=== PATIENT | male | born 1940 | race Caucasian/White ===

== ENCOUNTER 2018-01-08 07:44 | Emergency (ER) | payer OTHER ==
[~2018-01-08] VITALS: Ht 177.8 cm; Wt 108.4 kg
[~2018-01-08 07:44] MED LIST: ASPIRIN EC81 M1 PO; ATORVASTATIN CA40 M1 PO; BUPROPION HCL150 MG PO; CARVEDILOL6.25 M1 PO; CLEOCIN HCL150 MG PO; COMINH INH; COZ25 PO; DEPAKOTE ER250 M1; DIVALPROEX SOD250 MG PO; FENOFIBRATE145 M1 PO; FUROSEMIDE20 MG PO; LAC PO; LEVAQUIN750 MG PO; LEVOCETIRIZINE D5 M1 PO; LORATADINE10 MG PO; METOPROLOL SUCC50 M1 PO; PRADAXA150 M1 PO; PRILOSEC20 MG PO; SINEMET 25-1001 TAB PO
[2018-01-08 07:51] VITALS: Ht 177.8 cm; Wt 108.4 kg
[2018-01-08 09:52] VITALS: BP 160/72
== END 2018-01-08 09:52 | disposition home or self-care (01) ==
LOC: ED 07:44
DX: S63.502A Unspecified sprain of left wrist, initial encounter (principal); S09.90XA Unspecified injury of head, initial encounter; G20 Parkinson's disease; Z88.0 Allergy status to penicillin; Z86.79 Personal history of other diseases of the circulatory system; W19.XXXA Unspecified fall, initial encounter; Y93.89 Activity, other specified; Y92.89 Other specified places as the place of occurrence of the external cause; Y99.8 Other external cause status

== ENCOUNTER 2018-12-04 16:57 | Inpatient (IN) | payer OTHER ==
[~2018-12-04] VITALS: Ht 177.8 cm; Wt 95.3 kg
[~2018-12-04 16:57] MED LIST changes: +ALFUZOSIN HYDRO10 M1 PO; +ASPIR LOW81 MG PO; +BUPROPION HCL150 M1 PO; +CLARITIN10 MG PO; +COLACE100 MG PO; +DIVALPROEX SOD500 M2 PO; +FLOVENT DI50 MCG/Ac1 IH; +GOOD SENSE OMEP20 MG PO; +LASIX20 MG PO; +LEADER MELATONIN5 MG PO; +LIPI10 PO; +POTASSIUM CHLO10 MEQ PO; +PROSCAR5 MG PO; +ULTRAM50 MG PO; +VITAMIN B121000 MCG PO
[2018-12-04 17:05] VITALS: Ht 177.8 cm; Wt 95.3 kg
[2018-12-04 18:08] LABS: PLATELET COUNT 181 x10^3mcL (130-400)
[2018-12-04 18:09] LABS: RED CELL DISTRIBUTION WIDTH 16.6 % (11.5-14.5)
[2018-12-04 18:16] LABS: CALCIUM 8.2 mg/dL (8.5-10.1); CARBON DIOXIDE 34.5 mmol/L (21-32); CHLORIDE SERUM 103 mmol/L (98-107); CREATININE SERUM 1.1 mg/dL (0.7-1.3); GLUCOSE SERUM 108 mg/dL (74-106); POTASSIUM SERUM 4.1 mmol/L (3.5-5.1); SODIUM SERUM 141 mmol/L (136-145)
[2018-12-04 18:21] LABS: ALKALINE PHOSPHATASE 68 U/L (46-116); ALT/SGPT 7 U/L (16-63); AST/SGOT 16 U/L (15-37); BILIRUBIN TOTAL 0.5 mg/dL (0.20-1.00)
[2018-12-04] MEDS ORDERED: FUROSEMIDE20 MG PO (18:33)
[2018-12-04] MEDS ORDERED: CLARITIN10 MG PO (18:34)
[2018-12-04] MEDS ORDERED: GOOD SENSE OMEP20 MG PO (18:34)
[2018-12-04] MEDS ORDERED: RESTORIL15 MG PO (18:35)
[2018-12-04] MEDS ORDERED: PRADAXA150 M1 PO (18:35)
[2018-12-04] MEDS ORDERED: KLOR-CON SPRIN10 MEQ PO (18:35)
[2018-12-04] MEDS ORDERED: TRAMADOL HCL50 MG PO (18:36)
[2018-12-04] MEDS ORDERED: ALFUZOSIN HYDRO10 M1 PO (18:36)
[2018-12-04] MEDS ORDERED: ASPIRIN ADULT L81 M3 PO (18:36)
[2018-12-04] MEDS ORDERED: LIPI10 PO (18:37)
[2018-12-04] MEDS ORDERED: BUPROPION HCL150 MG PO (18:37)
[2018-12-04] MEDS ORDERED: SINEMET 25-1001 TAB PO (18:37)
[2018-12-04] MEDS ORDERED: CARVEDILOL6.25 M1 PO (18:38)
[2018-12-04] MEDS ORDERED: COLACE100 MG PO (18:38)
[2018-12-04] MEDS ORDERED: DIVALPROEX SOD500 M2 PO (18:38)
[2018-12-04] MEDS ORDERED: FINASTERIDE5 M1 PO (18:39)
[2018-12-04] MEDS ORDERED: LOPERAMIDE HCL2 MG PO (18:39)
[2018-12-04] MEDS ORDERED: MECLIZINE HYD12.5 MG PO (18:40)
[2018-12-04] MEDS ORDERED: PROAIR RES117 MCG/Ac IH (18:40)
[2018-12-04] MEDS ORDERED: ONDANSETRON4 M3 PO (18:40)
[2018-12-04] MEDS ORDERED: GOOD NEIGH1200 MG/15 PO (18:40)
[2018-12-04] MEDS ORDERED: ROBAFEN100 MG/5 M PO (18:41)
[2018-12-04] MEDS ORDERED: SUDAFED CONGEST30 MG PO (18:41)
[2018-12-04 19:07] LABS: PHOSPHOROUS 3.5 mg/dL (2.5-4.9)
[2018-12-04 19:34] VITALS: BP 123/65
[2018-12-04 19:51] VITALS: BP 123/65
[2018-12-05 01:14] LABS: microscopic required? NO
[2018-12-05 01:19] LABS: urine erythrocyte NEGATIVE (NEGATIVE)
[2018-12-05 01:29] LABS: AMPHETAMINE QUAL UR NONE DETECTED (See below)
[2018-12-05 04:52] VITALS: BP 131/70
[2018-12-05 07:15] VITALS: BP 139/63
[2018-12-05 07:21] LABS: CALCIUM 8.5 mg/dL (8.5-10.1); CARBON DIOXIDE 31.1 mmol/L (21-32); CHLORIDE SERUM 104 mmol/L (98-107); GLUCOSE SERUM 89 mg/dL (74-106); MAGNESIUM 2.1 mg/dL (1.8-2.4); PHOSPHOROUS 3.9 mg/dL (2.5-4.9); POTASSIUM SERUM 4.5 mmol/L (3.5-5.1); SODIUM SERUM 142 mmol/L (136-145)
[2018-12-05 08:08] LABS: BASOPHIL % 1.1 % (0-2); PLATELET COUNT 166 x10^3mcL (130-400)
[2018-12-05 08:13] LABS: RED CELL DISTRIBUTION WIDTH 16.4 % (11.5-14.5)
[2018-12-05 12:37] VITALS: BP 144/55
[2018-12-05] MEDS ORDERED: TRAMADOL HCL50 MG PO (14:53)
[2018-12-05] MEDS ORDERED: TYLENOL325 M1 PO (14:56)
[2018-12-05] MEDS ORDERED: LOPERAMIDE HCL2 MG (14:58)
[2018-12-05] MEDS ORDERED: IMD60 PO (15:05)
[2018-12-05] MEDS ORDERED: NITROGLYCERIN0.4 MG SL (15:05)
[2018-12-05 15:09] VITALS: BP 144/55
== END 2018-12-05 17:15 | DRG 205 ==
LOC: ED 16:57 → DU 18:25
PROVIDERS: Emergency Medicine; ADMIT Internal Medicine
DX: M94.0 Chondrocostal junction syndrome [Tietze] (principal); I50.23 Acute on chronic systolic (congestive) heart failure; K21.9 Gastro-esophageal reflux disease without esophagitis; I48.91 Unspecified atrial fibrillation; E78.5 Hyperlipidemia, unspecified; G20 Parkinson's disease; Z95.0 Presence of cardiac pacemaker; Z79.82 Long term (current) use of aspirin; Z68.25 Body mass index [BMI] 25.0-25.9, adult
CPT/HCPCS: 83880; Q0092